=== PATIENT | male | born 1970 | race Caucasian/White ===

== ENCOUNTER 2021-12-19 10:36 | Emergency (ER) | payer OTHER ==
[~2021-12-19] VITALS: Ht 190.5 cm; Wt 125.0 kg
--- NOTE | 2021-12-19 10:40 | PHYS DOC ---
Adult General HPI HPI Patient is a 51-year-old male presenting via EMS for EKG changes. Patient reports he has been at baseline health and being treated for hypertension in outpatient setting only. Nonetheless, reports he has had little sleep in the last 60 hours due to ongoing belching and substernal/epigastric discomfort. He has history of GERD and is in the process of being worked up for this in the outpatient setting by PCP but has not been taking any medication for this. Admits he went to urgent care in local area prior to arrival and was evaluated for influenza and COVID despite being fully vaccinated with tests pending. An EKG was performed at that time and interpreted by their provider as potentially ischemic prompting him to be transported to our facility. EMS reported that patient was hemodynamically stable on arrival with unremarkable 12 and 15-lead EKGs. On arrival to our ER, patient reports " feeling fine". States he is having some ongoing belching that can be reproduced when he swallows very deep. Otherwise denies any history of passing out with physical exertion, pertinent early cardiac disease in family, or other known history of CAD. EKG from outlying facility was reviewed and interpreted by myself as sinus rhythm at 68 bpm, unremarkable intervals, no axis deviation, no ischemic findings, no STEMI. Review of Systems Review of Systems Fourteen body systems of review of systems have been reviewed. See HPI for pertinent positives and negative responses, other barroso all other systems are negative, non-pertinent or non-contributory Physical Exam Physical Exam Constitutional: Well developed, well nourished, no acute distress, non-toxic appearance. HENT: Normocephalic, atraumatic, bilateral external ears normal, oropharynx moist, no oral exudates, nose normal. Eyes: PERRLA, EOMI, conjunctiva normal, no discharge. Neck: Normal range of motion, no tenderness, supple, no stridor. Cardiovascular: Heart rate regular, sinus rhythm, no murmurs rubs or gallops Lungs & Thorax: Bilateral breath sounds clear to auscultation Abdomen: Bowel sounds normal, soft, no tenderness, no masses, no pulsatile masses. Nonsurgical abdomen, no peritoneal signs Skin: Warm, dry, no erythema, no rash. Back: No tenderness, no CVA tenderness. Extremities: No tenderness, no cyanosis, no clubbing, ROM intact, no edema. Neurologic: Alert and oriented X 3, grossly normal motor & sensory function, no focal deficits noted. Psychologic: Anxious affect and mood Current Patient Data Vital Signs Vital Signs Date Time Temp Pulse Resp B/P (MAP) Pulse Ox O2 Delivery O2 Flow Rate FiO2 12/19/21 11:43 97.6 62 16 149/88 (108) 97 Vital Signs Date Time Temp Pulse Resp B/P (MAP) Pulse Ox O2 Delivery O2 Flow Rate FiO2 12/19/21 11:43 97.6 62 16 149/88 (108) 97 Lab Results Current Medications Medications (Trade) Dose Ordered Sig/Flaca Route PRN Reason Start Time Stop Time Status Last Admin Dose Admin Multi-Ingredient Mouthwash/Gargle (Gi Cocktail) 20 ml 1X ONCE PO 12/19/21 11:30 12/19/21 11:31 DC 12/19/21 11:32 EKG EKG EKG ordered and interpreted by myself at 1206 hrs. as sinus rhythm at 62 bpm, unremarkable intervals, left axis deviation, no acute ischemic findings, no STEMI Radiology/Procedures Radiology/Procedures [] Heart Score C/O Chest Pain: No HEART Score for Chest Pain: HEART Score for Chest Pain Response (Comments) Value History Slighlty/Non-Suspicious 0 ECG Normal 0 Age >45 - < 65 1 Risk Factors 1 or 2 Risk Factors 1 Total 2 Risk Factors: Risk Factors: DM, Current or recent (<one month) smoker, HTN, HLP, family history of CAD, obesity. Risk Scores: Risk Factors: DM, Current or recent (<one month) smoker, HTN, HLP, family history of CAD, obesity. Course & Med Decision Making Course & Med Decision Making ABCs unremarkable HPI and physical exam nonconcerning for any emergent or surgical issues Patient presenting for difficulty sleeping due to recurrent type symptoms. Also endorses waking up at times gasping for breath while sleeping EKG changes reported from urgent care were likely interpreted from EKG strip reading, patient's outlying EKG reviewed and nonconcerning. Repeated today and also nonconcerning. POC glucose obtained and normal Patient's epigastric symptoms consistent with reflux and improved with GI cocktail. Joint decision made to start Pepcid with instructions for close outpatient follow-up with PCP as GI consultation might be indicated Also advised discussing need for outpatient sleep study with primary care physician given what sound to be apneic spells while sleeping that should be worked up. He is high risk given weight and anatomy of neck Ultimately I disclosed that this might be an acute presentation more concerning pathology and recommended further work-up but patient deferred stating he felt comfortable following up with primary care physician. As such, strict return precautions discussed and addressed prior to ER departure Froilan Disclaimer Froilan Disclaimer This electronic medical record was generated, in whole or in part, using a voice recognition dictation system. Departure Departure: Impression: Primary Impression: GERD with apnea Disposition: HOME / SELF CARE / HOMELESS Condition: STABLE Patient Instructions: Diet for Gastroesophageal Reflux Disease, Adult, Gastroesophageal Reflux Disease, Adult Additional Instructions: As discussed prior to ER departure, your vitals, physical exam, blood sugar and cardiac monitoring were negative for any emergent or surgical issues. Your symptoms improved with a GI cocktail. I disclosed most likely diagnosis of symptomatic GERD for which a new prescription to control your stomach acid levels was prescribed today. Please take this as scheduled to completion. You also endorsed symptoms of apnea raising suspicion for potential sleep apnea. This should be worked up in outpatient setting with your primary care physician and an outpatient sleep study is recommended. Given ongoing GERD, and outpatient gastroenterology consultation might be indicated if your symptoms are refractory to provided medication prescribed today. I did disclose this might be an acute presentation more concerning pathology and so, close outpatient follow-up is highly advised. If any concerning signs or symptoms present prior to outpatient follow-up please do not hesitate to come back for repeat evaluation. It was a pleasure to take care of you and I wish you the best going forward Scripts Famotidine (PEPCID) 20 Mg Tablet 1 TAB PO BID for gerd, #60 TAB 0 Refills Prov: BRITNEY ALMAZAN DO 12/19/21 BRITNEY ALMAZAN DO Dec 19, 2021 10:40
[2021-12-19] MEDS ORDERED: LIDO:MAALOX 1:1 20 ML SINGLE DOSE. PO ONE (11:30)
[2021-12-19] MEDS ORDERED: FAMO-63 PO (12:18)
[2021-12-19 12:22] VITALS: BP 158/70
--- NOTE | 2021-12-19 12:54 | EKG ---
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
== END 2021-12-19 12:30 | disposition home or self-care (01) ==
LOC: ER 10:36
DX: K21.9 Gastro-esophageal reflux disease without esophagitis (principal)
CPT/HCPCS: 93005; 99283